=== PATIENT | male | born 1995 | race African-American/Black ===

== ENCOUNTER 2016-04-28 10:51 | Emergency (ER) | payer SELFPAY ==
[~2016-04-28] VITALS: Ht 165.1 cm; Wt 50.3 kg
[~2016-04-28 10:51] MED LIST: MOTRIN600 MG PO
[2016-04-28 13:43] VITALS: BP 120/70
== END 2016-04-28 13:43 | disposition home or self-care (01) ==
LOC: EME 10:51
DX: S60.221A Contusion of right hand, initial encounter (principal); W22.09XA Striking against other stationary object, initial encounter
CPT/HCPCS: 73130; 99281; 99284